=== PATIENT | female | born 1960 | race African-American/Black ===

== ENCOUNTER 2025-02-23 09:55 | Emergency (ER) | payer OTHER ==
[~2025-02-23] VITALS: Ht 177.8 cm; Wt 62.0 kg
[2025-02-23 10:08] VITALS: O2SAT 98
[2025-02-23] MEDS ORDERED: NAPR-681 MT (11:17)
[2025-02-23 11:42] VITALS: BP 126/78; PULSE 61; RESP 16; TEMP 37.1; O2SAT 98
== END 2025-02-23 11:44 | disposition home or self-care (01) ==
LOC: ER 10:07
DX: S20.211A Contusion of right front wall of thorax, initial encounter (principal); M25.561 Pain in right knee; Z98.890 Other specified postprocedural states; W10.9XXA Fall (on) (from) unspecified stairs and steps, initial encounter; Y93.01 Activity, walking, marching and hiking; Y92.89 Other specified places as the place of occurrence of the external cause; Y99.8 Other external cause status
CPT/HCPCS: 71101; 73562; 99284